=== PATIENT | female | born 1980 | race Caucasian/White ===

== ENCOUNTER 2018-09-04 04:29 | Emergency (ER) | payer OTHER ==
[~2018-09-04] VITALS: Ht 157.5 cm; Wt 117.9 kg
[2018-09-04] MEDS ORDERED: ACETAMINOPHEN-1 EAC1 PO (05:23)
[2018-09-04 05:31] VITALS: BP 109/71
== END 2018-09-04 05:33 | disposition home or self-care (01) ==
LOC: M.ERS 04:29
DX: M25.561 Pain in right knee (principal); Z88.6 Allergy status to analgesic agent; Z90.710 Acquired absence of both cervix and uterus; Z90.49 Acquired absence of other specified parts of digestive tract

== ENCOUNTER 2018-09-16 12:25 | Emergency (ER) | payer OTHER ==
[~2018-09-16] VITALS: Ht 157.5 cm; Wt 117.9 kg
[~2018-09-16 12:25] MED LIST: ACETAMINOPHEN-1 EAC1 PO
[2018-09-16] MEDS ORDERED: LEVAQUIN 500 M500 M2 PO (14:36)
[2018-09-16] MEDS ORDERED: VENTOLIN HFA 1818 GM INH (14:36)
[2018-09-16] MEDS ORDERED: TRAMADOL 50 MG50 MG PO (14:37)
[2018-09-16 14:48] VITALS: BP 145/91
== END 2018-09-16 14:48 | disposition home or self-care (01) ==
LOC: M.ERS 12:25
DX: J18.1 Lobar pneumonia, unspecified organism (principal); J02.9 Acute pharyngitis, unspecified; Z90.710 Acquired absence of both cervix and uterus; Z88.8 Allergy status to other drugs, medicaments and biological substances

== ENCOUNTER 2018-10-06 23:55 | Emergency (ER) | payer OTHER ==
[~2018-10-06] VITALS: Ht 157.5 cm; Wt 117.9 kg
[~2018-10-06 23:55] MED LIST changes: +LEVAQUIN 500 M500 M2 PO; +TRAMADOL 50 MG50 MG PO; +VENTOLIN HFA 1818 GM INH
[2018-10-07 00:19] LABS: ABSOLUTE EOSINOPHILS 0.2 thou/uL (0.0-0.7); ABSOLUTE LYMPHOCYTES 2.2 thou/uL (0.8-5.3); ABSOLUTE MONOCYTES 0.5 thou/uL (0.0-1.2); ABSOLUTE NEUTROPHILS 4.4 thou/uL (1.6-8.1); BASOPHILS 0.5 %; EOSINOPHILS 2.9 %; HEMATOCRIT 37.3 % (37.0-47.0); HEMOGLOBIN 12.5 gm/dL (12.0-15.0); LYMPHOCYTES 29.9 %; MCHC 33.5 g/dL (28.0-37.0); MCV 83.5 fL (80.0-100.0); MONOCYTES 7.2 %; MPV 8.1 fl. (7.2-11.1); NUCLEATED RBCS 0 /100WBC; PLATELET COUNT* 248 thou/uL (150-400); POLYS 59.5 %; RBC 4.46 mil/uL (4.20-5.00); RDW-CV 13.5 % (10.5-14.5); WBC 7.4 thou/uL (4.0-11.0)
[2018-10-07 00:31] LABS: APTT 26.8 Seconds (25.0-31.3)
[2018-10-07 01:01] LABS: ANION GAP 10 mmol/L (7-16); BUN 13 mg/dL (7-18); CALCIUM 8.4 mg/dL (8.5-10.1); CHLORIDE 105 mmol/L (98-107); CO2 25 mmol/L (21-32); CREATININE 0.8 mg/dL (0.6-1.3); GLUCOSE 106 mg/dL (70-99); POTASSIUM 3.6 mmol/L (3.5-5.1); SODIUM 140 mmol/L (136-145)
[2018-10-07 01:13] LABS: ALBUMIN 3.5 g/dL (3.4-5.0); ALKALINE PHOSPHATASE 114 U/L (46-116); CK-MB MASS 1.5 ng/mL (<0.5-3.6); LIPASE 122 U/L (73-393); MAGNESIUM 1.7 mg/dL (1.8-2.4); NT-PRO BRAIN NAT PEPTIDE 65 pg/mL (<300); SGOT 25 U/L (15-37); SGPT 49 U/L (30-65); TOTAL BILIRUBIN 0.3 mg/dL (<0.1-1.0); TOTAL PROTEIN 7.2 g/dL (6.4-8.2); TROPONIN-I LEVEL <0.06 ng/mL (<0.06)
[2018-10-07 01:22] VITALS: BP 145/82
--- NOTE | 2018-10-07 17:11 | EKG ---
[place] [address] ELECTROCARDIOGRAM REPORT Name: SONALISALONI ANAMIKA [facility]Francesco#: [id number] Admission: 10/06/18 Attend Phys: Discharge: 10/07/18 Date of : 82 Report #: [id number] THIS REPORT FOR: //name// [facility] ED Test Date: 2018-10-07 Test Time: 00:04:21 Pat Name: SALONI LYON Department: Room: Gender: F [employer]: [place] : 1980 Requested By: [employer] Foreman Order Number: [id number] MD: Tyrese Mccrary Measurements Intervals [place] Rate: 82 P: 59 WA: 160 QRS: 19 QRSD: 91 T: 14 QT: 377 QTc: 441 Interpretive Statements Sinus rhythm No previous ECG available for comparison Electronically Signed On 10-07-2018 17:11:45 CDT by Tyrese Mccrary [email or web address] <ELECTRONICALLY SIGNED> By: Tyrese Mccrary MD, [facility] 10/07/18 1711 0004 0004 Tyrese Mccrary MD, FACC /EPI
== END 2018-10-07 01:22 | disposition home or self-care (01) ==
LOC: M.ERS 23:55
PROVIDERS: Family Medicine
DX: R07.89 Other chest pain (principal); Z88.6 Allergy status to analgesic agent; Z90.710 Acquired absence of both cervix and uterus; Z90.49 Acquired absence of other specified parts of digestive tract